=== PATIENT | female | born 1975 | race Caucasian/White ===

== ENCOUNTER 2024-11-12 00:09 | Day surgery (SDC) | payer OTHER, SELFPAY ==
--- NOTE | 2024-11-05 15:00 | PC.NURSE ---
Report to the Outpatient Waiting Room, entrance under the green pavilion located off [facility], at time _1230pm on date __11/12/24 . Planned Procedure Time: __2:30pm .? Time changes happen often and if your time is changed the preop area will call you the afternoon before. - You and your visitor will be asked to self-screen and do not enter if you have any COVID symptoms. Please call surgeon if you need to reschedule. - A mask is optional within the hospital at this time. Patients may have clear liquids (water, carbonated beverages, clear teas, apple juice) until 3 hours prior to surgery with a maximum of 20 ounces. - No food from midnight until time of surgery and no smoking, or chewing tobacco (or any form of nicotine). No chewing gum, candy or mints. (11:30am) Take only the following medications with a SIP of water on the morning of surgery: NONE DO NOT STOP ANY OF YOUR OTHER PRESCRIPTION MEDICATIONS PRIOR TO SURGERY EXCEPT THE FOLLOWING Hold all vitamins and supplements for 3 days per anesthesiologist. Date to take last dose 11/08/24 Medications to discontinue per physician Aspirin for [address] Kohli Date to take last dose____11/05/24 Please no make-up, nail greek, hairspray, perfume, deodorant, or body powder the day of surgery.? No jewelry (including any body piercings) or valuables the day of surgery, leave them at home.? Please take a shower or bath the night before, or the morning of, surgery with an antibacterial soap.? Wear comfortable, loose fitting clothing. - Jewelry must be removed prior to entering the operating room.? Rings and piercings that are not removed may be cut off. - The hospital will not accept responsibility for valuables.? - Please leave all valuables, including medications, at home the day of surgery. If you are going home after surgery, a licensed solo truck driver must drive you home.? - NO public transportation without another adult if you receive anesthesia. - We recommend that an adult stay with you for 24 hours following discharge. - We also recommend that you do not drive, make important decision, drink alcoholic beverages, or take any drugs that were not prescribed by your health care provider for at least 24 hours after your discharge time. Follow any additional instructions given to you from your surgeon. Telephone instructions given to ___Patient and asked if any additional questions and then verbalized understanding. Patient advised to call surgeon office or pre surgery nurse liaison [phone] if any additional questions.
[2024-11-06 11:30] VITALS: BMI 28.9
--- OUTSIDE RECORDS SUMMARY | 2024-11-12 00:17 | XMS_ITS | Continuity of Care Document ---
Author Organization [facility] Address [address] [place] [address] Phone Care Team Providers Care Assistant Pastry Chef Name Role Phone Nurse, Registered Unavailable Unavailable Procedures Procedure Date HOME VST EST PT LOW TO MOD SEVERITY HOME VST EST PT LOW TO MOD SEVERITY Advance Directives Directive Yes / No Effective Date File Name No Information Encounters Encounter Description Practice Location Reason(s) For Visit Diagnoses Date Provider Providers Copied on Encounter [facility], [address] [facility], [place], [place], [id number], tel:[phone] Penitentiary No Information Nurse Registered . [address], [id number], . tel:[phone] HOME VST EST PT LOW TO MOD SEVERITY [facility], [address] [place] [address], [id number], tel:[phone] Penitentiary Counseling, Other, Specified Nurse Registered . [address], [id number], . tel:[phone] HOME VST EST PT LOW TO MOD SEVERITY [facility], [address] [place] [address], [id number], tel:[phone] Penitentiary Counseling, Other, Specified Nurse Registered . [address], [id number], . tel:[phone] Family History Family Member Type Diagnosis Age At Onset No Information Payers Payer name Insurance type Covered republican ID Authoriza tion(s) No Information Social History Type Description Quantity Date Captured Comments Sex Female Smoking Status No Information Chief Complaint And Reason For Visit No Information Reason For Referral Reason For Referral No Information History Of Present Illness Encounter Date Complaint History Of Prese nt Illness No Information Functional Status Date Functional Assessmen t No Information Instructions Date Instruction Additional Infor mation No Information Assessments Type Assessment Date No Information Patient Care Teams Name Effective Dates (start - stop) Status Members No Information
--- NOTE | 2024-11-12 12:15 | PM.IMHP ---
H&P: HPI History of Present Illness Date/Time: 11/12/24 12:15 Chief Complaint: Heavy periods. Narrative: 49 y/o nulligravida with a progestin containing IUD. She has a fibroid uterus, with the largest myoma measuring 3.3 cm. The IUD is properly placed. Menses have gotten heavier, longer and more irregular. She is interested in surgical management. Review of Systems Review of Systems: All systems reviewed & are unremarkable except as noted in HPI and below [facility] Social History Social History Smoking status: Never smoker Alcohol intake: current Alcohol use details: 1 per quarter Substance use: never Living arrangements: with family Additional living arrangements comments: Spiritual care concerns: No Meds Home Medications and Allergies Home Medications ?Medication ?Instructions ?Recorded ?Confirmed ?Type aspirin 81 mg chewable tablet 81 mg PO DAILY 11/05/24 11/05/24 History (Patrick Chewable Low Dose Aspirin) magnesium oxide-magnesium amino 1 cap PO DAILY 11/05/24 11/05/24 History acid chelate 300 mg capsule omega 9-pjm-byb-fish oil 1,200 mg 1 cap PO DAILY 11/05/24 11/05/24 History (144 mg-216 mg) capsule (Fish Oil) Allergies Allergy/AdvReac Type Severity Reaction Status Date / Time No Known Allergies Allergy Verified 11/05/24 14:47 Exam Const: Orientation/consciousness: patient oriented x3 Other: Well-developed, well-nourished female in no acute distress. Neck: Thyroid: thyroid normal Lymphatic: no lymphadenopathy noted (in neck, axilla or inguinal nodes) Resp: Effort & Inspection: normal respiratory effort Auscultation: clear to auscultation bilaterally Cardio: Rate: regular rate Rhythm: regular rhythm Heart sounds: S1 normal heart sound present and S2 normal heart sound present GI: Other: ABD: Soft, nontender, nondistended. No guarding or rebound tenderness. No hepatosplenomegaly. : General: Yes no CVA tenderness Other: External genitalia: normal female hair distribution, without lesion. Urethral meatus: no lesion, non prolapsed. Bladder: no mass, nontender Vagina: well-estrogenized, without lesion or discharge. No cystocele or rectocele. Cervix: no lesion or discharge. Uterus: small, anteverted, freely mobile, nontender Adnexa: no mass or tenderness. Anus/perineum: no lesions, nontender Back/Spine/Pelvis: Back: no CVA tenderness Skin: General skin exam: normal color and no rashes or lesions noted Neuro: General: patient oriented x3 Extrem: Other: Extremities: nontender with no edema Psych: Mental Status: mental status grossly normal Affect: normal affect Assessment and Plan Assessment and plan (1) Menometrorrhagia: Code(s): N92.1 - Excessive and frequent menstruation with irregular cycle Status: Acute Assessment and Plan: A: Menometrorrhagia. P: We reviewed medical as well as surgical approaches. She prefers the latter. Specifically, she would like hysteroscopy, removal of IUD, dilation and sharp curettage, and endometrial ablation. She understands risks of surgery to include risks of anesthesia, risks of pain, infection, bleeding, blood products, thromboembolic phenomena and damage to adjacent structures such as bowel, bladder, ureters, blood vessels and nerves. She understands all these risks and elects to proceed with surgery.
[2024-11-12 12:38] VITALS: BP 144/87; PULSE 79; RESP 16; TEMP 37; O2SAT 100
[2024-11-12] MEDS: ACETAMINOPHEN 500 MG TABLET 1000 MG PO (13:15)
[2024-11-12] MEDS: LACTATED RINGERS 1,000 ML 30 ML IV CONT ×2 (13:20→15:00)
--- NOTE | 2024-11-12 14:02 | WPDHPUPDATE1 ---
History and Physical Update Update Date/Time: 11/12/24 14:02 History and Physical has been reviewed, including an updated exam of the patient. There are NO changes in the patient's condition. Risks, benefits, and alternatives have been discussed and questions answered. Patient agrees to proceed with procedure.
--- NOTE | 2024-11-12 14:05 | WPDANESEPPF ---
Anes - Initial Pre Proc Eval Procedure: Operation Date: 11/12/24 14:30 Proposed Procedures p Hysteroscopy Dilation and Curettage with Soha Endometrial Ablation - Xavier Kohli MD Date/Time: 11/12/24 14:05 Surgeon: Xavier Kohli MD Pre Op Diagnosis: heavy bleeding Patient Data Age: 49 Gender: F Height: 1.55 m Weight: 70.8 kg Last Vital Signs Temp 37.0 C 11/12/24 12:38 Pulse 79 11/12/24 12:38 Resp 16 11/12/24 12:38 BP 144/87 H 11/12/24 12:38 Pulse Ox 100 11/12/24 12:38 O2 Del Method Room Air 11/12/24 12:38 Allergies Allergy/AdvReac Type Severity Reaction Status Date / Time No Known Allergies Allergy Verified 11/12/24 13:17 Home Medications ?Medication ?Instructions ?Recorded ?Confirmed ?Type aspirin 81 mg chewable tablet 81 mg PO DAILY 11/05/24 11/12/24 History (Patrick Chewable Low Dose Aspirin) magnesium oxide-magnesium amino 1 cap PO DAILY 11/05/24 11/12/24 History acid chelate 300 mg capsule omega 3-qca-poj-fish oil 1,200 mg 1 cap PO DAILY 11/05/24 11/12/24 History (144 mg-216 mg) capsule (Fish Oil) Patient hx anesthesia problems: none Family hx anesthesia problems: none Results Review: All pre-operative results and documents have been reviewed as part of the pre-operative evaluation. [facility] Social History Social History Smoking status: Never smoker Alcohol intake: current Alcohol use details: 1 per quarter Substance use: never Living arrangements: with family Additional living arrangements comments: Spiritual care concerns: No Anes - Eval Final PreProcedure Day of Procedure 11/12/24 14:05 Patient weight: overweight Heart: regular rate and rhythm Lungs: clear to auscultation Airway: Mallampati scale class II Neurological: alert and oriented Last oral intake: >/= 8 hours ASA classification: II Emergent: no Anesthetic plan: proceed Anesthesia type and monitoring: general GIVS and standard monitoring Results Review: All pre-operative results and documents have been reviewed as part of the pre-operative evaluation. Informed Consent: The patient's anesthetic plan and its attendant risks and benefits were discussed with the patient/family/POA. Questions were solicited and answers provided to the satisfaction of the patient/family/POA.
[2024-11-12] MEDS: LIDOCAINE 1% LOCAL INJ 10 ML VIAL INFILTRATE (14:19)
--- NOTE | 2024-11-12 14:40 | S_PTH ---
PATIENT: Concha Meneses LOC: [facility] U#:[id number] AGE/SX: 49/F ROOM: RE11/12/[address]: Xavier Kohli MD : 1975 BED: DIS: 11/12/2024 SPEC #: [id number] RECD: 11/13/24 08:50 STATUS: RASHEED RENilay #: [id number] ROSE: 11/12/24 14:[address]: Xavier Kohli DEPT: [facility] Surgical RECD BY: Yuliya Steele Tissues: A - Endometrial Curettings Procedures: Hematoxylin and Eosin Stain Gross and Microscopic Level 4
--- NOTE | 2024-11-12 14:56 | W.PM.PROC2 ---
Procedure Note - Detailed Date of Procedure 11/12/24 Pre-op Diagnosis Menometrorrhagia Post-op Diagnosis Same Procedure Performed Hysteroscopy Removal of IUD Resection of submucous myoma Dilation and sharp curettage Endometrial ablation Surgeon Xavier Kohli MD Anesthesia MAC and Local (1% lidocaine) Findings IUD was in the expected location in the endometrial cavity. There was an anterior mass encroaching on the endometrial cavity, likely to be a submucous fibroid. Both tubal ostia seen. Description of Procedure The patient was taken to the operating room where she was prepared and draped in the usual sterile fashion in the dorsal lithotomy position. The bladder was drained with a red rubber catheter. A sterile speculum was placed into the vagina. The anterior lip of the cervix was grasped with single-tooth tenaculum. Ten mL of 1% lidocaine was administered in a paracervical block. The cervix was then gently dilated using Hegar dilators until an 8 mm dilator could be passed. Hysteroscopy was performed using sterile saline as a distention medium. Findings are as noted above. A polyp forceps was advanced and the IUD was easily removed, intact, and discarded. The Aveta resector was advanced under hysteroscopic visualization, and the anterior submucous myoma was shaved down to be flush with the endometrium. Sharp curettage was then performed, and endometrial curettings were collected on a Telfa pad and passed off to be sent to pathology. Finally, the the Soha device was advanced and endometrial ablation commenced without difficulty. The device was withdrawn and a second look was taken using the hysteroscope. Excellent coverage of the endometrial cavity was noted. The tenaculum was removed. Hemostasis was excellent. Sponge, lap, needle and instrument counts were correct. The patient was awakened and taken to the recovery room in stable condition. I was present and scrubbed through the entire procedure. Implants None Estimated Blood Loss 5 Drains No Packing No Pathology Yes (Endometrial curettings) Complications None Condition Stable Disposition PACU
[2024-11-12 15:00] VITALS: BP 131/69; PULSE 88; RESP 14; O2SAT 99
[2024-11-12 15:30] VITALS: BP 134/69; PULSE 87
== END 2024-11-12 15:49 | disposition home or self-care (01) ==
PROVIDERS: Visit Provider Obstetrics & Gynecology
PROC: 0U5B8ZZ Destruction of Endometrium, Via Natural or Artificial Opening Endoscopic (ICD-10-PCS; CPT 58563; principal; 2024-11-12 14:30)
DX: N92.1 Excessive and frequent menstruation with irregular cycle (principal); Z30.432 Encounter for removal of intrauterine contraceptive device; D25.0 Submucous leiomyoma of uterus
CPT/HCPCS: 58563; 58579; 58561; 88305; A9270; J2003; J2250; J2405; J2704; J3010; J7120